=== PATIENT | male | born 1960 | race Two or more races ===

== ENCOUNTER 2024-06-28 11:41 | Inpatient (IN) | payer OTHER, MEDICAID ==
[~2024-06-28] VITALS: Ht 193 cm; Wt 116.4 kg
--- NOTE | 2024-06-28 11:54 | ED.PDOC ---
History of present illness HPI Comments 63Y M with PMHx DM presents to ED for chief complaint high blood sugar x1week with dry mouth, vision changes, and n/v/d. Pt denies chest pain and SOB. Pt states he was prescribed Levemir but his insurance did not approve it. Pt states he has not taken his meds for a few days. No other symptoms reported. Time Seen by MD: 11:45 History of present illness: Nurses Notes, Medications, Allergies Allergies: Coded Allergies: Vancomycin (Verified Allergy, Unknown, 06/28/24) Information Source: Patient Mode of Arrival: Ambulatory Timing: Weeks Duration: Since onset [place]: Other History of: Diabetes, Insulin use Modifying factors: Nothing Associated signs and symptoms: Nausea, Vomiting, Blurred Vision Past Medical History PAST MEDICAL HISTORY: DM Surgical History: Denies all surgeries Family History Family History: Unknown Social History Smoker: Non-Smoker Alcohol: Denies ETOH Use Drugs: Denies Drug Use Lives In: Home Constitutional: denies: chills, diaphoresis, fatigue, fever, malaise, sweats, weakness, others EENTM: reports: blurred vision, others (vision changes, dry mouth); denies: double vision, ear bleeding, ear discharge, ear drainage, ear pain, ear ringing, eye pain, eye redness, hearing loss, mouth pain, mouth swelling, nasal discharge, nose bleeding, nose congestion, nose pain, photophobia, tearing, throat pain, throat swelling, voice changes Respiratory: denies: cough, hemoptysis, orthopnea, SOB at rest, shortness of breath, SOB with excertion, stridor, wheezing, others Cardiovascular: denies: chest pain, dizzy spells, diaphoresis, Dyspnea on exertion, edema, irregular heart beat, left arm pain, lightheadedness, palpitations, PND, syncope, others Gastrointestinal: reports: diarrhea, nausea, vomiting; denies: abdomen distended, abdominal pain, blood streaked bowels, constipated, dysphagia, difficulty swallowing, hematemesis, melena, poor appetite, poor fluid intake, rectal bleeding, rectal pain, others Genitourinary: denies: burning, dysuria, flank pain, frequency, hematuria, incontinence, penile discharge, penile sore, pain, testicle pain, testicle swelling, urgency, others Neurological: denies: dizziness, fainting, headache, left sided numbness, left sided weakness, numbness, paresthesia, pre-existing deficit, right sided numbness, right sided weakness, seizure, speech problems, tingling, tremors, weakness, others Musculoskeletal: denies: back pain, gout, joint pain, joint swelling, muscle pain, muscle stiffness, neck pain, others Integumetry: denies: bruises, change in color, change in hair/nails, dryness, laceration, lesions, lumps, rash, wounds, others Allergic/Immunocompromised: denies: Difficulty Healing, Frequent Infections, Hives, Itching, others Hematologic/Lymphatic: denies: anemia, blood clots, easy bleeding, easy bruising, swollen glands, others Endocrine: denies: excessive hunger, excessive sweating, excessive thirst, excessive urination, flushing, intolerance to cold, intolerance to heat, unexplained weight gain, unexplained weight loss, others Psychiatric: denies: anxiety, bipolar disorder, depression, hopeless, panic disorder, schizophrenia, sleepless, suicidal, others All Other Systems: Reviewed and Negative Physical Exam General Appearance: No Apparent Distress, Normal HEENT: Other (dry mucous membranes) Neck: Full Range of Motion, Non-Tender, Normal, Normal Inspection Respiratory: Chest Non-Tender, Lungs Clear, No Accessory Muscle Use, No Respiratory Distress, Normal Breath Sounds Cardiovascular: No Edema, No JVD, No Murmur, No Gallop, Normal Peripheral Pulses, Regular Rate/Rhythm Breast Exam: Deferred Gastrointestinal: No Organomegaly, Non Tender, No Pulsatile Mass, Normal Bowel Sounds, Soft Genitalia: Deferred Pelvic: Deferred Rectal: Deferred Extremities: No calf tenderness, Normal capillary refill, Normal inspection, Normal range of motion, Non-tender, No pedal edema Musculoskeletal : Apperance: Normal Neurologic: Alert, consumer safety officer II-XII nml as Tested, No Motor Deficits, Normal Affect, Normal Mood, No Sensory Deficits Cerebellar Function: NOT DONE Reflexes: NOT DONE Skin: Dry, Normal Color, Warm Lymphatic: No Adenopathy Was a procedure done? Was a procedure done?: No Differential Diagnosis (DM) Differential Diagnosis: Dehydration, Hyperglycemia, UTI X-Ray, Labs, Meds, VS Vital Signs Date Time Temp Pulse Resp B/P (MAP) Pulse Ox O2 Delivery O2 Flow Rate FiO2 06/28/24 12:36 98.1 100 20 167/96 (119) 95 98.1 06/28/24 12:36 100 20 95 Room Air* 0 21 06/28/24 12:05 98.4 94 18 164/80 (108) 97 Lab Test 06/28/24 12:34 06/28/24 12:01 06/28/24 11:51 Range/Units Urine Color Yellow Yellow Urine Clarity Clear Clear Urine pH 6.0 5.0-9.0 Urine Specific [place] 1.027 1.001-1.035 Urine Protein Trace H Negative Urine Ketones Trace Negative Urine Blood Negative Negative /uL Urine Nitrite Negative Negative Urine Bilirubin Negative Negative Urine Urobilinogen 3 H Negative mg/dL Urine Leukocyte Esterase Negative Negative /uL Urine RBC 1 0 - 3 /hpf Urine Microscopic WBC < 1 0-3 /HPF Urine Squamous Epithelial Cells Few <5 /hpf Urine Bacteria None seen None Seen /hpf Urine Mucus Few None Seen Urine Glucose 4+ H Normal mg/dL White Blood Count 7.7 4.4-10.8 10^3/uL Red Blood Count 3.97 L 4.5-5.90 10^6/uL Hemoglobin 12.4 L 13.5-17.5 g/dL Hematocrit 37.1 L 41.0-53.0 % Mean Corpuscular Volume 93.3 80.0-100.0 fL Mean Corpuscular Hemoglobin 31.2 28.0-32.0 pg Mean Corpuscular Hemoglobin Concent 33.5 32.0-36.0 g/dL Red Cell Distribution Width 15.2 H 11.8-14.3 % Platelet Count 341 140-450 10^3/uL Mean Platelet Volume 8.9 6.9-10.8 fL Neutrophils (%) (Auto) 66.0 37.0-80.0 % Lymphocytes (%) (Auto) 25.3 10.0-50.0 % Monocytes (%) (Auto) 5.1 0.0-12.0 % Eosinophils (%) (Auto) 1.7 0.0-7.0 % Basophils (%) (Auto) 1.9 0.0-2.0 % Neutrophils # (Auto) 5.1 1.6-8.6 10 ^3/uL Lymphocytes # (Auto) 1.9 0.4-5.4 10 ^3/uL Monocytes # (Auto) 0.4 0-1.3 10 ^3/uL Eosinophils # (Auto) 0.1 0-0.8 10 ^3/uL Basophils # (Auto) 0.1 0-0.2 10 ^3/uL Nucleated Red Blood Cells 0.1 % Sodium Level 141 136-145 mmol/L Potassium Level 4.1 3.5-5.1 mmol/L Chloride Level 109 H 98-107 mmol/L Carbon Dioxide Level 23 20-31 mmol/L Anion Gap 9 5-15 Blood Urea Nitrogen 15 9-23 mg/dL Creatinine 1.04 0.700-1.30 mg/dL Glomerular Filtration Rate Calc 81 >90 mL/min BUN/Creatinine Ratio 14.4 10.0-20.0 Serum Glucose 191 H 74-106 mg/dL Calcium Level 9.0 8.7-10.4 mg/dL Troponin I High Sensitivity 6 </=54 ng/L POC Glucose 190 H 70-106 mg/dl [place] [id number] DIAGNOSTIC IMAGING Diagnostic Imaging Report : [id number] Signed PATIENT: CARLOS A CHARLTON ACCT: [id number] UNIT: [id number] : 1960 LOC: ER ROOM / BED: / AGE / SEX: 63 / M ADM STATUS: REG ER SERVICE 1150 ORDERING PHYSICIAN: MERCEDES FISHER MD PROCEDURE(s): CXRP - CHEST PORTABLE REASON: weakness ORDER NUMBER(s): [id number], ACCESSION NUMBER(s): [id number] EXAM: XY CHEST PORTABLE HISTORY: weakness COMPARISON: None TECHNIQUE: Portable AP view of the chest was performed. FINDINGS: No pneumothorax, consolidative infiltrates, or pulmonary edema. There is [id number] central peribronchial thickening. The heart is not enlarged. There is thoracic spondylosis and mild dextroscoliosis. 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 IMPRESSION: Reactive airways disease. The lungs are otherwise clear. ATED BY: MALINI SHEEHAN MD DICTATED DATE/TIME: 06/28/24 1204 SIGNED BY: MALINI SHEEHAN MD SIGNED DATE/TIME: 06/28/24 1204 CC: Time of 1ST Reevaluation: 12:15 Reevaluation 1ST: Unchanged Patient Education/Counseling: Diagnosis, Treatment Family Education/Counseling: No Family Present Departure 1 Departure Time of Disposition: 13:52 (Patient with uncontrolled diabetes and near- syncope. We will admit patient for further workup and expert consultation) Impression: Primary Impression: Uncontrolled diabetes mellitus Qualified Codes: E11.65 - Type 2 diabetes mellitus with hyperglycemia Additional Impression: Near syncope Disposition: ADMITTED INPATIENT Admit to: Med Surg Condition: Serious Critical Care Note Critical Care Time?: No Stability Stability form required: No Heart Score Heart Score: Heart Score Response (Comments) Value History N/A 0 EKG N/A 0 Age N/A 0 Risk Factors N/A 0 Troponin N/A 0 Total 0 I personally scribed for MERCEDES FISHER MD ([facility] on 06/28/24 at 11:53. Electronically submitted by Sloane King ([employer]). I personally scribed for MERCEDES FISHER MD ([email or web address]) on 06/28/24 at 12:14. Electronically submitted by Sloane King ([employer]). MERCEDES FISHER MD Jun 28, 2024 11:53
--- NOTE | 2024-06-28 12:06 | DVH ---
EXAM: XY CHEST PORTABLE HISTORY: weakness COMPARISON: None TECHNIQUE: Portable AP view of the chest was performed. FINDINGS: No pneumothorax, consolidative infiltrates, or pulmonary edema. There is [id number] central per ibronchial thickening. The heart is not enlarged. There is thoracic spondylosis and mild dextroscolio sis. There is left glenohumeral osteoarthritis, not fully imaged here. IMPRESSION: Reactive airways disease. The lungs are otherwise clear.
[2024-06-28 12:36] VITALS: PULSE 100; RESP 20; O2SAT 95
[2024-06-28 12:40] LABS: Basophils # (auto) 0.1 10 ^3/uL (0-0.2); Basophils % (auto) 1.9 % (0.0-2.0); Eosinophils # (auto) 0.1 10 ^3/uL (0-0.8); Eosinophils % (auto) 1.7 % (0.0-7.0); Hematocrit 37.1 % (41.0-53.0); Hemoglobin 12.4 g/dL (13.5-17.5); Lymphocytes # (auto) 1.9 10 ^3/uL (0.4-5.4); Lymphocytes % (auto) 25.3 % (10.0-50.0); Mean Corpuscular Hemoglobin 31.2 pg (28.0-32.0); Mean Corpuscular Hgb Conc. 33.5 g/dL (32.0-36.0); Mean Corpuscular Volume 93.3 fL (80.0-100.0); Monocytes # (auto) 0.4 10 ^3/uL (0-1.3); Monocytes % (auto) 5.1 % (0.0-12.0); Neutrophils # (auto) 5.1 10 ^3/uL (1.6-8.6); Nucleated Red Blood Cells % 0.1 %; Platelet Count (auto) 341 10^3/uL (140-450); Red Blood Cells 3.97 10^6/uL (4.5-5.90); Red Cell Distribution Width 15.2 % (11.8-14.3); White Blood Cell 7.7 10^3/uL (4.4-10.8)
[2024-06-28 12:58] LABS: Urine Bacteria None Seen /hpf (None Seen)
[2024-06-28 13:05] LABS: Potassium 4.1 mmol/L (3.5-5.1); Sodium 141 mmol/L (136-145)
[2024-06-28 13:06] LABS: Anion Gap 9 (5-15); Carbon Dioxide 23 mmol/L (20-31)
[2024-06-28 13:11] LABS: BUN/Creatinine Ratio 14.4 (10.0-20.0); Blood Urea Nitrogen 15 mg/dL (9-23)
[2024-06-28 13:16] LABS: Chloride 109 mmol/L (98-107); Glucose 191 mg/dL (74-106)
[2024-06-28 13:23] LABS: Urine Blood Negative /uL (Negative); Urine Clarity Clear (Clear); Urine Color Yellow (Yellow); Urine Mucus FEW (None Seen); Urine Protein, UAD TRACE (Negative); Urine Specific Gravity 1.027 (1.001-1.035); Urine Squamous Epithelial Cell FEW /hpf (<5); Urine Urobilinogen 3 mg/dL (Negative); Urine WBC < 1 /HPF (0-3)
[2024-06-28] MEDS ORDERED: DOCUSATE SOD 100 MG CAP PO PRN (15:45)
[2024-06-28] MEDS ORDERED: NITROGLYCERIN 0.4 MG SL TAB SL PRN (15:45)
[2024-06-28] MEDS ORDERED: MORPHINE SULFATE INJ 2 MG/ml SYRG IV PRN (15:45)
[2024-06-28] MEDS ORDERED: ONDANSETRON HCL 4 MG/2 ML VIAL IV PRN (15:45)
[2024-06-28] MEDS ORDERED: DEXTROSE (50%) 50ML SYRG IV PRN (15:45)
--- NOTE | 2024-06-28 15:54 | DVHHP2 ---
History of Present Illness Reason for Visit: Uncontrolled diabetes History of Present Illness Chetan Salmon is a 63-year-old male with past medical history diabetes, hypertension, and hyperlipidemia, who came in for elevated blood sugar. Patient states he has not been to see a doctor in a long time and has not been taking a ny of his medications. He states his blood sugars have been elevated, he has been nauseated, vomiting, and having blurry vision for 2 weeks. Cardiovascular: HTN, hyperipidemia Endocrine: Diabetes Past Surgical History: Other (left leg, right ankle) Smoke: No Drugs: Heroin (quite 3 months ago) Lives: with Family Domestic Violence: Neg Review of Systems Constitutional: No: Fever, Chills, Sweats, Weakness, Malaise, Other Eyes: No: Pain, Vision change, Conjunctivae inflammation, Eyelid inflammation, Other, Redness ENT: No: Ear pain, Ear discharge, Nose pain, Nose discharge, Nose congestion, Mouth pain, Mouth swelling, Throat pain, Throat swelling, Other Respiratory: No: Cough, Dry, Shortness of breath, SOB with excertion, Wheezing, Hemoptysis, Pleuritic Pain, Sputum, Wheezing, Other Cardiovascular: No: Chest Pain, Palpitations, Orthopnea, Paroxysmal Noc. Dyspnea, Edema, Lt Headedness, Other Gastrointestinal: Nausea, Vomiting, Abdominal Pain; No: Diarrhea, Constipation, Melena, Hematochezia, Other Genitourinary: No Dysuria, No Frequency, No Incontinence, No Hematuria, No Retention, No Other Musculoskeletal: No: other, neck pain, shoulder pain, arm pain, back pain, hand pain, leg pain, foot pain Skin: No: Rash, Lesions, Jaundice, Bruising, Other Neurological: No: Weakness, Numbness, Incoordination, Change in speech, Confusion, Seizures, Other Allergies: Coded Allergies: Vancomycin (Verified Allergy, Unknown, 06/28/24) Medications Current Medications Medications Dose Ordered Sig/Stacey Route Start Time Stop Time Status Last Admin Dose Admin Acetaminophen/ Hydrocodone Bitart 1 tab Q4HP PRN PO 06/28/24 15:45 UNV Ondansetron HCl 4 mg Q4HP PRN IV 06/28/24 15:45 UNV Docusate Sodium 100 mg BIDPRN PRN PO 06/28/24 15:45 UNV Acetaminophen 650 mg Q6HP PRN PO 06/28/24 15:45 UNV Nitroglycerin 0.4 mg Q5MINP PRN SL 06/28/24 15:45 UNV Morphine Sulfate 2 mg Q30M PRN IV 06/28/24 15:45 UNV Diagnostic Test (Pha) 1 strip ACHS 06/28/24 17:00 UNV Insulin Human Regular HS SC 06/28/24 22:00 UNV Insulin Human Regular AC SC 06/28/24 17:00 UNV Dextrose 50 ml UD PRN IV 06/28/24 15:45 UNV Lisinopril 10 mg DAILY PO 06/29/24 10:00 UNV Metoprolol Tartrate 25 mg BID PO 06/28/24 22:00 UNV Exam Vital Signs Vital Signs Date Time Temp Pulse Resp B/P (MAP) Pulse Ox O2 Delivery O2 Flow Rate FiO2 06/28/24 12:36 98.1 100 20 167/96 (119) 95 98.1 06/28/24 12:36 Room Air* 0 21 General Appearance: Alert, Oriented X3, Cooperative, mild distress HEENT: Atraumatic, PERRLA, Mucous membr. moist/pink Respiratory: Clear to auscultation, Normal air movement Cardiovascular: Regular rate, Normal S1, Normal S2 Abdominal: Normal bowel sounds, Soft, No tenderness Extremities: No clubbing, No cyanosis, No edema Skin: No rashes, No breakdown, No significant lesion Neuro: Normal gait, Normal speech, Strength at 5/5 X4 ext Psych/Mental Status: Mental status NL, Mood NL Labs/Xrays Labs Test 06/28/24 12:34 06/28/24 12:01 06/28/24 11:51 Range/Units Urine Color Yellow Yellow Urine Clarity Clear Clear Urine pH 6.0 5.0-9.0 Urine Specific [place] 1.027 1.001-1.035 Urine Protein Trace H Negative Urine Ketones Trace Negative Urine Blood Negative Negative /uL Urine Nitrite Negative Negative Urine Bilirubin Negative Negative Urine Urobilinogen 3 H Negative mg/dL Urine Leukocyte Esterase Negative Negative /uL Urine RBC 1 0 - 3 /hpf Urine Microscopic WBC < 1 0-3 /HPF Urine Squamous Epithelial Cells Few <5 /hpf Urine Bacteria None seen None Seen /hpf Urine Mucus Few None Seen Urine Glucose 4+ H Normal mg/dL White Blood Count 7.7 4.4-10.8 10^3/uL Red Blood Count 3.97 L 4.5-5.90 10^6/uL Hemoglobin 12.4 L 13.5-17.5 g/dL Hematocrit 37.1 L 41.0-53.0 % Mean Corpuscular Volume 93.3 80.0-100.0 fL Mean Corpuscular Hemoglobin 31.2 28.0-32.0 pg Mean Corpuscular Hemoglobin Concent 33.5 32.0-36.0 g/dL Red Cell Distribution Width 15.2 H 11.8-14.3 % Platelet Count 341 140-450 10^3/uL Mean Platelet Volume 8.9 6.9-10.8 fL Neutrophils (%) (Auto) 66.0 37.0-80.0 % Lymphocytes (%) (Auto) 25.3 10.0-50.0 % Monocytes (%) (Auto) 5.1 0.0-12.0 % Eosinophils (%) (Auto) 1.7 0.0-7.0 % Basophils (%) (Auto) 1.9 0.0-2.0 % Neutrophils # (Auto) 5.1 1.6-8.6 10 ^3/uL Lymphocytes # (Auto) 1.9 0.4-5.4 10 ^3/uL Monocytes # (Auto) 0.4 0-1.3 10 ^3/uL Eosinophils # (Auto) 0.1 0-0.8 10 ^3/uL Basophils # (Auto) 0.1 0-0.2 10 ^3/uL Nucleated Red Blood Cells 0.1 % Sodium Level 141 136-145 mmol/L Potassium Level 4.1 3.5-5.1 mmol/L Chloride Level 109 H 98-107 mmol/L Carbon Dioxide Level 23 20-31 mmol/L Anion Gap 9 5-15 Blood Urea Nitrogen 15 9-23 mg/dL Creatinine 1.04 0.700-1.30 mg/dL Glomerular Filtration Rate Calc 81 >90 mL/min BUN/Creatinine Ratio 14.4 10.0-20.0 Serum Glucose 191 H 74-106 mg/dL Calcium Level 9.0 8.7-10.4 mg/dL Troponin I High Sensitivity 6 </=54 ng/L POC Glucose 190 H 70-106 mg/dl EXAM: XY CHEST PORTABLE FINDINGS: No pneumothorax, consolidative infiltrates, or pulmonary edema. There is [id number] central peribronchial thickening. The heart is not enlarged. There is thoracic spondylosis and mild dextroscoliosis. There is left glenohumer al osteoarthritis, not fully imaged here. IMPRESSION: Reactive airways disease. The lungs are otherwise clear. Assessment/Plan Assessment/Plan Assessment: Uncontrolled diabetes mellitus, Uncontrolled hypertension, Hyperlipidemia, Plan: Admit to Tele, Cardiology consult, ECHO, Accu checks Q AC&HS with sliding scale, Antihypertensives, A1c, Plan discussed with: Patient My Orders Orders - SHAHBAZ DAVIS BREAKFAST MANAGER Procedure Category Date Status Time Admit ADMIT 06/28/24 Transmitted 15:41 Code Status CODE 06/28/24 Transmitted 15:41 Hydrocodone-Acet PHA 06/28/24 Logged 5/325mg Tab (Ulmer 15:45 Ondansetron Hcl PHA 06/28/24 Logged (Zofran) 15:45 Docusate Sodium PHA 06/28/24 Logged Capsule (Colace 15:45 Complete Blood Count LAB 06/29/24 Verified 04:00 Comprehensive LAB 06/29/24 Verified Metabolic Panel 04:00 Cardiac DIET 06/28/24 Transmitted Diet-2gna,Lofat,Lochol Dinner Condition: Serious BRYAN 06/28/24 In Process 15:41 Acetaminophen Tablet PHA 06/28/24 Logged (Tylenol Tablet) 15:45 Nitroglycerin PHA 06/28/24 Logged Sublingual (Ntrostat 15:45 Morphine Sulfate PHA 06/28/24 Logged Injection 15:45 Stat Ekg For Chest BRYAN 06/28/24 In Process Pain 15:41 Notify Of Changes BRYAN 06/28/24 In Process From Base 15:41 Road Consultant For BRYAN 06/28/24 In Process 24 Hours 15:41 Emergency Dysrhythmia BRYAN 06/28/24 In Process Protocol 15:41 Rhythm Strips Once BRYAN 06/28/24 In Process Every Shift 15:41 Oxygen By Nasal RT 06/28/24 Transmitted Cannula 15:41 Glucose Blood PHA 06/28/24 Logged (Accu-Chek Comfort 17:00 Insulin R (Human) PHA 06/28/24 Logged (Insulin R) 22:00 Insulin R (Human) PHA 06/28/24 Logged (Insulin R) 17:00 Dextrose 50% Syringe PHA 06/28/24 Logged 15:45 Lisinopril Tablet PHA 06/29/24 Logged (Zestril Tablet) 10:00 Lisinopril Tablet PHA 06/28/24 Logged (Zestril Tablet) 15:45 Metoprolol Tartrate PHA 06/28/24 Logged Tablet (Lopressor Ta 22:00 Sodium Chloride 0.9% PHA 06/28/24 Logged 16:00 * Cardiology Consult CONS 06/28/24 Transmitted 15:46 Echo 2d Mode Cardiac US 06/28/24 Logged DOP 15:46 Date of Service: Jun 28, 2024 Billing Provider: SHAHBAZ DAVIS Common Visit Codes: [id number] INP/OBS CARE (MOD) SHAHBAZ DAVIS Jun 28, 2024 15:54
[2024-06-28] MEDS: SODIUM CHLORIDE 0.9% 1,000 ML IV ONE (16:00)
--- NOTE | 2024-06-28 16:30 | DVHSR ---
APPROVED REPORT EXAM: Two-dimensional and M-mode echocardiogram with Doppler and color Doppler. Blood Pressure: 162/92 mmHg INDICATION uncontrolled hypertension RISK FACTORS Height: 6'4, Weight: 200 DIMENSIONS LVDd5.8 (3.8-5.7cm)LA (2D)4.5 (1.9-4.0cm)Aortic Root3.4 (2.0-3.7cm) LVDs4.1 (2.5-4.0cm)LA (MM) (1.9-4.0cm)Aortic Cusp Exc1.5 (1.5-2.0cm) EF (%) 55.0 (55-70%)Rt. Atrium3.1 (1.9-4.0cm)Asc. Aorta cm IVSd1.0 (0.7-1.1cm)RV (D) (1.8-2.4cm) PWd0.9 (0.7-1.1cm) Mitral Valve MitralMitral Stenosis E wave0.77m/sMV Mean GR.mmHg A wave0.92m/sMV Peak GR.142mmHg E/A ratio0.82D MVAcm2 DECEL [id number] 1/2 Timems Aortic Valve Aortic ValveAortic Stenosis V10.92m/Carla Mean GR.3mmHg V21.17m/Carla Peak GR.6mmHg LVOT Diameter2.2 (1.8-2.4cm)Doppler AVA2.99cm2 Pulmonic Valve V20.85m/s Other Information Quality : Technically LimitedRhythm : Technically limited study due to patient position. Conclusion lvef 60% by visual estimate mild lvh normal rv function moderate left atrium enlarged mild to moderate mitral regurg
[2024-06-28] MEDS: LISINOPRIL 5 MG TAB PO ONE (16:57)
[2024-06-28] MEDS: InsuLIN REG 1unit/0.01ml Soln (100units/ml) SC SCH ×2 (17:00→23:34)
[2024-06-28] MEDS: ACCU-CHEK COMFORT CURVE STRIP VI SCH (17:00)
--- NOTE | 2024-06-28 17:02 | DVHINCON2 ---
Date Seen: Jun 28, 2024 Referring Physician RICH Bonilla Reason for Consultation Uncontrolled hypertension History of Present Illness This is a 63-year-old male patient who presents to the emergency room with multiple chief complaints. The patient reports he has been experiencing blurry vision, diarrhea, and polyuria for approximately two weeks. He comes to the emergency room for further evaluation. The patient admits he has not been taking his medications since April because he moved here from [place] and has not established care. Cardiology has been consulted at this time for uncontrolled hypertension. Upon emergency room arrival, the patient's blood pressure was noted to be 164/80. Initial twelve lead electrocardiogram reveals normal sinus rhythm without any significant ST segment changes. Initial troponin level was negative. The patient denies any chest pain at time of assessment. Significant past medical history includes hypertension, dyslipidemia, type 2 diabetes mellitus, CVA in 2010 without residual deficit, hepatitis-B, previous heroin abuse, and tobacco use. Past Medical History Past medical history reviewed. No other significant than mentioned above. Past Surgical History Carpal tunnel repair Right ankle fracture repair Family History Family history reviewed. Social History Patient has a 40 pack year history, smokes approximately one pack per day Patient reports previous heroin use, states last time was in March 2024 Patient denies alcohol use Allergies: Coded Allergies: Vancomycin (Verified Allergy, Unknown, 06/28/24) Home Meds Patient denies taking any prescribed medications at this time Current Medications Current Medications Medications (Trade) Dose Ordered Sig/Stacey Route PRN Reason Start Time Stop Time Status Last Admin Acetaminophen/ Hydrocodone Bitart ([place] 5/325MG Tab) 1 tab Q4HP PRN PO MODERATE PAIN (4-6 PAIN SCALE) 06/28/24 15:45 Ondansetron HCl (Zofran) 4 mg Q4HP PRN IV NAUSEA / VOMITING 06/28/24 15:45 Docusate Sodium (Colace Capsule) 100 mg BIDPRN PRN PO FOR CONSTIPATION 06/28/24 15:45 Acetaminophen (Tylenol Tablet) 650 mg Q6HP PRN PO PAIN SCALE 1-3 OR TEMP>100.4 06/28/24 15:45 Nitroglycerin (Ntrostat Sublingual) 0.4 mg Q5MINP PRN SL FOR CHEST PAIN 06/28/24 15:45 Morphine Sulfate 2 mg Q30M PRN IV FOR CHEST PAIN 06/28/24 15:45 Diagnostic Test (Pha) (Accu-Chek Comfort Curve T) 1 strip ACHS 06/28/24 17:00 Insulin Human Regular (InsuLIN R) HS SC 06/28/24 22:00 Insulin Human Regular (InsuLIN R) AC SC 06/28/24 17:00 Dextrose 50 ml UD PRN IV Blood Sugar LESS THAN 60 06/28/24 15:45 Lisinopril (Zestril Tablet) 10 mg DAILY PO 06/29/24 10:00 Metoprolol Tartrate (Lopressor Tablet) 25 mg BID PO 06/28/24 22:00 Review of Systems Constitutional: No symptom reported Ears, Nose, & Throat: No symptom reported Eyes: Blurry vision Neurological: No symptoms reported Pulmonary/Respiratory: No symptoms reported Cardiovascular: No symptom reported Gastrointestinal: No symptom reported Genitourinary: Polyuria Musculoskeletal: No symptom reported Skin: No symptom reported Psychiatric: No symptom reported Endocrine: No symptom reported Hematologic/Lymphatic: No symptom reported Vital Signs Vital Signs Date Time Temp Pulse Resp B/P (MAP) Pulse Ox O2 Delivery O2 Flow Rate FiO2 06/28/24 16:57 151/73 06/28/24 12:36 98.1 100 20 95 98.1 06/28/24 12:36 Room Air* 0 21 Physical Exam General Appearance: Cooperative. Well-developed. Well-nourished. No acute distress. Pulmonary/Respiratory: Clear, bilateral breaths sounds. Cardiovascular/Chest: Regular rate and rhythm. Peripheral Pulses: 2+ Radial (R). 2+ Radial (L). Abdominal Exam: Normal bowel sounds. Soft, non-tender. Ankle Exam: Negative ankle edema Lower extremities: Negative lower extremity edema Neuro/Mental Status: A/OX4, coherent. Thoughts/Psych: Normal thought pattern. Appropriate mood and affect. Good judgment and insight. Appearance: No acute distress. Skin Exam: Normal inspection. Normal color. Warm and dry. Labs/Diagnostic Data Labs Test 06/28/24 12:34 06/28/24 12:01 06/28/24 11:51 Range/Units Urine Color Yellow Yellow Urine Clarity Clear Clear Urine pH 6.0 5.0-9.0 Urine Specific [place] 1.027 1.001-1.035 Urine Protein Trace H Negative Urine Ketones Trace Negative Urine Blood Negative Negative /uL Urine Nitrite Negative Negative Urine Bilirubin Negative Negative Urine Urobilinogen 3 H Negative mg/dL Urine Leukocyte Esterase Negative Negative /uL Urine RBC 1 0 - 3 /hpf Urine Microscopic WBC < 1 0-3 /HPF Urine Squamous Epithelial Cells Few <5 /hpf Urine Bacteria None seen None Seen /hpf Urine Mucus Few None Seen Urine Glucose 4+ H Normal mg/dL White Blood Count 7.7 4.4-10.8 10^3/uL Red Blood Count 3.97 L 4.5-5.90 10^6/uL Hemoglobin 12.4 L 13.5-17.5 g/dL Hematocrit 37.1 L 41.0-53.0 % Mean Corpuscular Volume 93.3 80.0-100.0 fL Mean Corpuscular Hemoglobin 31.2 28.0-32.0 pg Mean Corpuscular Hemoglobin Concent 33.5 32.0-36.0 g/dL Red Cell Distribution Width 15.2 H 11.8-14.3 % Platelet Count 341 140-450 10^3/uL Mean Platelet Volume 8.9 6.9-10.8 fL Neutrophils (%) (Auto) 66.0 37.0-80.0 % Lymphocytes (%) (Auto) 25.3 10.0-50.0 % Monocytes (%) (Auto) 5.1 0.0-12.0 % Eosinophils (%) (Auto) 1.7 0.0-7.0 % Basophils (%) (Auto) 1.9 0.0-2.0 % Neutrophils # (Auto) 5.1 1.6-8.6 10 ^3/uL Lymphocytes # (Auto) 1.9 0.4-5.4 10 ^3/uL Monocytes # (Auto) 0.4 0-1.3 10 ^3/uL Eosinophils # (Auto) 0.1 0-0.8 10 ^3/uL Basophils # (Auto) 0.1 0-0.2 10 ^3/uL Nucleated Red Blood Cells 0.1 % Sodium Level 141 136-145 mmol/L Potassium Level 4.1 3.5-5.1 mmol/L Chloride Level 109 H 98-107 mmol/L Carbon Dioxide Level 23 20-31 mmol/L Anion Gap 9 5-15 Blood Urea Nitrogen 15 9-23 mg/dL Creatinine 1.04 0.700-1.30 mg/dL Glomerular Filtration Rate Calc 81 >90 mL/min BUN/Creatinine Ratio 14.4 10.0-20.0 Serum Glucose 191 H 74-106 mg/dL Calcium Level 9.0 8.7-10.4 mg/dL Troponin I High Sensitivity 6 </=54 ng/L POC Glucose 190 H 70-106 mg/dl Assessment Hypertension Dyslipidemia [id number] mitral valve regurgitation Type 2 diabetes mellitus CVA without residual deficits History of heroin abuse Tobacco use Medical noncompliance Plan/Recommendation We will continue with the following plan/recommendations (Dr. Gomez): Patient seen and examined in the emergency room with . Transthoracic echocardiogram reveals EF 60%. We will recommend to continue with antihypertensive therapy. Patient educated on the importance of establishing care and continuing prescribed medications. There is no further inpatient cardiac workup indicated at this time. Thank you for allowing us to care for this patient. Please call with any questions or concerns. Critical care time spent: 40 minutes This medical document was created using an electronic medical record system with voice recognition software and computerized dictation system. Although this document has been carefully reviewed, there might still be some phonetic and typographical errors. Occasional wrong-word or ``sound-alike substitutions may have occurred due to the inherent limitations of voice recognition software. These areas are purely typographical due to imperfections of the software programs and do not reflect any compromise in the patient's medical care. Please read the chart carefully and recognize, using context, where these substitutions have occurred. Plan discussed with: Patient NYHA Physical activity limitations: NA Date of Service: Jun 28, 2024 Billing Provider: DENIA GARCIA Cardiology Common Codes: [id number] INP/OBS CARE (High) Cardiology Consultation Codes: [id number] CONSULT <45MIN DENIA GARCIA Jun 28, 2024 17:02
[2024-06-28] MEDS: HYDROcodone-ACET 5/325MG TAB PO PRN (17:08)
--- NOTE | 2024-06-28 18:01 | ECG ---
[facility] Test Date: 2024-06-28 Test Time: 16:48:04 Pat Name: CARLOS A CHARLTON Department: er Room: [address] [place] [address] Gender: M [employer] Librarian: elsi : [id number] Requested By: DENIA GARCIA Order Number: [id number] Reading MD: Aron Graham Measurements Intervals [place] Rate: 84 P: 72 [place]: 124 QRS: 72 QRSD: 102 T: 9 QT: 369 QTc: 437 Interpretive Statements Sinus rhythm Abnormal R-wave progression, early transition Minimal ST depression, inferior leads Baseline wander in lead(s) V6 Electronically Signed On 06-29-2024 12:00:54 PST by Aron Graham Please click the below link to view image of tracing.
[2024-06-28] MEDS ORDERED: hydrALAZINE HCL 20 MG/ML VL IV PRN (19:15)
[2024-06-28 19:23] LABS: LDL Cholesterol 70 mg/dL (< 100)
[2024-06-28 19:24] LABS: Cholesterol 123 mg/dL (< 200)
[2024-06-28 19:26] LABS: HDL Cholesterol 40 mg/dL (40-59); Triglycerides 161 mg/dL (< 150)
[2024-06-28 20:45] LABS: Amphetamine Screen, Urine Neg (NEGATIVE); Barbiturate Scree,Urine Neg (NEGATIVE); Benzodiazephine Screen, Urine Neg (NEGATIVE); Cannabinoid Screen, Urine Neg (NEGATIVE); Cocaine Screen, Urine Neg (NEGATIVE); Opiate Scree,Urine Neg (NEGATIVE); Phencyclidine Screen, Urine Neg (NEGATIVE)
[2024-06-28] MEDS: METOPROLOL TARTRATE 25 MG TAB PO SCH (23:31)
[2024-06-29 05:15] LABS: Basophils # (auto) 0.1 10 ^3/uL (0-0.2); Basophils % (auto) 1.2 % (0.0-2.0); Eosinophils # (auto) 0.1 10 ^3/uL (0-0.8); Eosinophils % (auto) 1.5 % (0.0-7.0); Hematocrit 33.5 % (41.0-53.0); Hemoglobin 11.4 g/dL (13.5-17.5); Lymphocytes # (auto) 1.7 10 ^3/uL (0.4-5.4); Lymphocytes % (auto) 22.2 % (10.0-50.0); Mean Corpuscular Hemoglobin 31.7 pg (28.0-32.0); Mean Corpuscular Hgb Conc. 34.1 g/dL (32.0-36.0); Monocytes # (auto) 0.4 10 ^3/uL (0-1.3); Monocytes % (auto) 5.2 % (0.0-12.0); Neutrophils # (auto) 5.4 10 ^3/uL (1.6-8.6); Neutrophils % (auto) 69.9 % (37.0-80.0); Platelet Count (auto) 299 10^3/uL (140-450); Red Cell Distribution Width 15.2 % (11.8-14.3); White Blood Cell 7.8 10^3/uL (4.4-10.8)
[2024-06-29 05:32] LABS: Alanine Aminotransferase 11 U/L (7-40); Albumin 4.1 g/dL (3.2-4.8); Alkaline Phosphatase 81 U/L (46-116); Anion Gap 7 (5-15); BUN/Creatinine Ratio 15.3 (10.0-20.0); Blood Urea Nitrogen 18 mg/dL (9-23); Calcium 8.9 mg/dL (8.7-10.4); Carbon Dioxide 25 mmol/L (20-31); Potassium 4.1 mmol/L (3.5-5.1); Sodium 140 mmol/L (136-145)
[2024-06-29 05:33] LABS: Total Protein 7.1 g/dL (5.7-8.2)
[2024-06-29 05:35] VITALS: PULSE 77; RESP 20; O2SAT 98
[2024-06-29 05:36] LABS: Aspartate Aminotransferase 8 U/L (13-40); Bilirubin, Total 1.5 mg/dL (0.2-1.0); Chloride 108 mmol/L (98-107); Glucose 226 mg/dL (74-106)
[2024-06-29] MEDS: LISINOPRIL 5 MG TAB PO SCH (09:21)
[2024-06-29 09:23] VITALS: BP 143/68; PULSE 78; RESP 18; TEMP 98.4; O2SAT 95
[2024-06-29 13:00] VITALS: BP 149/62; PULSE 91; TEMP 98.4; O2SAT 97
--- NOTE | 2024-06-29 14:27 | DVHPN2 ---
Reviewed: Care Plan, H&P, Labs, Medications, Previous Orders, Radiology Changes from previous H/P or p: No Changes General: Per HPI Eyes: No Pain, No Vision change, No Conjunctivae inflammation, No Eyelid inflammation, No Other, No Redness ENT: No Ear pain, No Ear discharge, No Nose pain, No Nose discharge, No Nose congestion, No Mouth pain, No Mouth swelling, No Throat pain, No Throat swelling, No Other Cardiovascular: No Chest Pain, No Palpitations, No Orthopnea, No Paroxysmal Noc. Dyspnea, No Edema, No Lt Headedness, No Other Respiratory: No Cough, No Dry, No Shortness of breath, No SOB with excertion, No Wheezing, No Hemoptysis, No Pleuritic Pain, No Sputum, No Other Gastrointestinal: Nausea, Vomiting, Abdominal Pain; No Diarrhea, No Constipation, No Melena, No Hematochezia, No Other Genitourinary: No Dysuria, No Frequency, No Incontinence, No Hematuria, No Retention, No Other Musculoskeletal: No other, No neck pain, No shoulder pain, No arm pain, No back pain, No hand pain, No leg pain, No foot pain Skin: No Rash, No Lesions, No Jaundice, No Bruising, No Other Objective Vitals Vital Signs Date Time Temp Pulse Resp B/P (MAP) Pulse Ox O2 Delivery O2 Flow Rate FiO2 06/29/24 13:00 98.4 91 149/62 (91) 97 98.4 06/29/24 09:23 18 06/29/24 05:35 Room Air* 0 21 Medications Current Medications Medications Dose Ordered Sig/Stacey Route Start Time Stop Time Status Last Admin Dose Admin Acetaminophen/ Hydrocodone Bitart 1 tab Q4HP PRN PO 06/28/24 15:45 06/29/24 10:58 1 TAB Ondansetron HCl 4 mg Q4HP PRN IV 06/28/24 15:45 Docusate Sodium 100 mg BIDPRN PRN PO 06/28/24 15:45 Acetaminophen 650 mg Q6HP PRN PO 06/28/24 15:45 Nitroglycerin 0.4 mg Q5MINP PRN SL 06/28/24 15:45 Morphine Sulfate 2 mg Q30M PRN IV 06/28/24 15:45 Diagnostic Test (Pha) 1 strip ACHS 06/28/24 17:00 06/29/24 11:49 1 STRIP Insulin Human Regular HS SC 06/28/24 22:00 06/28/24 23:34 8 UNITS Insulin Human Regular AC SC 06/28/24 17:00 06/29/24 11:50 3 UNITS Dextrose 50 ml UD PRN IV 06/28/24 15:45 Lisinopril 10 mg DAILY PO 06/29/24 10:00 06/29/24 09:21 10 MG Metoprolol Tartrate 25 mg BID PO 06/28/24 22:00 06/29/24 00:25 25 MG Hydralazine HCl 10 mg Q6HP PRN IV 06/28/24 19:15 Laboratory Results Laboratory Tests 06/29/24 04:33 Chemistry Test 06/29/24 04:33 Albumin 4.1 g/dL (3.2-4.8) Calcium Level 8.9 mg/dL (8.7-10.4) Total Protein 7.1 g/dL (5.7-8.2) LFT Test 06/29/24 04:33 Alanine Aminotransferase (ALT) 11 U/L (7-40) Alkaline Phosphatase 81 U/L (46-116) Aspartate Amino Transferase (AST) 8 U/L (13-40) L Total Bilirubin 1.5 mg/dL (0.2-1.0) H Urinalysis Test 06/28/24 12:34 Urine Color Yellow (Yellow) Urine Clarity Clear (Clear) Urine pH 6.0 (5.0-9.0) Urine Specific [place] 1.027 (1.001-1.035) Urine Protein Trace (Negative) H Urine Ketones Trace (Negative) Urine Blood Negative /uL (Negative) Urine Nitrite Negative (Negative) Urine Bilirubin Negative (Negative) Urine Urobilinogen 3 mg/dL (Negative) H Urine Leukocyte Esterase Negative /uL (Negative) Urine RBC 1 /hpf (0 - 3) Urine Microscopic WBC < 1 /HPF (0-3) Urine Squamous Epithelial Cells Few /hpf (<5) Urine Bacteria None seen /hpf (None Seen) Urine Mucus Few (None Seen) Urine Glucose 4+ mg/dL (Normal) H Assessment/Plan Assessment/Plan Chetan Salmon is a 63-year-old male with past medical history diabetes, hypertension, and hyperlipidemia, who came in for elevated blood sugar. Patient states he has not been to see a doctor in a long time and has not been taking any of his medications. He states his blood sugars have been elevated, he has been nauseated, vomiting, and having blurry vision for 2 weeks. Uncontrolled diabetes mellitus, Uncontrolled hypertension, Hyperlipidemia, obesity chest pain intractable back pain 07/09/2024: pending evaluation by cardio for chest pain Plan discussed with: Patient Date of Service: Jun 29, 2024 Billing Provider: MARY HA DO Common Visit Codes: [id number] INP/OBS CARE(HIGH) MARY HA DO Jun 29, 2024 14:27
[2024-06-29] MEDS: ACETAMINOPHEN 325 MG TAB PO PRN (16:16)
[2024-06-29 17:03] VITALS: BP 136/70; PULSE 81; RESP 20; TEMP 98.4; O2SAT 95
[2024-06-29 20:00] VITALS: PULSE 116
[2024-06-29 21:00] VITALS: BP 144/68; PULSE 97; RESP 18; TEMP 97.6; O2SAT 95
[2024-06-29] MEDS: MORPHINE SULFATE INJ 2 MG/ml SYRG IV ONE (21:05)
[2024-06-30] VITALS (7 sets, daily range): BP systolic 130–157; BP diastolic 54–67; PULSE 72–95; RESP 18–21; TEMP 97.5–98.2; O2SAT 95–97
[2024-06-30] MEDS ORDERED: INSLANTI SC (13:19)
[2024-06-30] MEDS ORDERED: LISI-275 PO (13:19)
[2024-06-30] MEDS ORDERED: MET25T PO (13:19)
[2024-06-30] MEDS: OXYCODONE W/ ACETAMINOPHEN 5/325MG TABLET PO PRN (14:38)
[2024-07-01 01:00] VITALS: BP 131/74; PULSE 72; RESP 18; TEMP 97.5; O2SAT 95
[2024-07-01 05:00] VITALS: BP 148/56; PULSE 80; RESP 18; TEMP 98.5; O2SAT 94
[2024-07-01 08:00] VITALS: PULSE 77; RESP 20
[2024-07-01 10:47] VITALS: BP 150/62; PULSE 77; RESP 22; O2SAT 93
[2024-07-01 13:00] VITALS: BP 123/57; PULSE 65; RESP 21; TEMP 98; O2SAT 94
--- NOTE | 2024-07-01 15:54 | DVHDS2 ---
Discharge Summary Date of Admission Jun 28, 2024 at 15:41 Date of Discharge: Jul 01, 2024 Labs/Diagnostic Data: Laboratory Results Test 07/01/24 12:13 06/29/24 04:33 06/28/24 12:34 06/28/24 12:01 POC Glucose 189 mg/dl (70-106) White Blood Count 7.8 10^3/uL (4.4-10.8) Red Blood Count 3.60 10^6/uL (4.5-5.90) Hemoglobin 11.4 g/dL (13.5-17.5) Hematocrit 33.5 % (41.0-53.0) Mean Corpuscular Volume 93.0 fL (80.0-100.0) Mean Corpuscular Hemoglobin 31.7 pg (28.0-32.0) Mean Corpuscular Hemoglobin Concent 34.1 g/dL (32.0-36.0) Red Cell Distribution Width 15.2 % (11.8-14.3) Platelet Count 299 10^3/uL (140-450) Mean Platelet Volume 8.7 fL (6.9-10.8) Neutrophils (%) (Auto) 69.9 % (37.0-80.0) Lymphocytes (%) (Auto) 22.2 % (10.0-50.0) Monocytes (%) (Auto) 5.2 % (0.0-12.0) Eosinophils (%) (Auto) 1.5 % (0.0-7.0) Basophils (%) (Auto) 1.2 % (0.0-2.0) Neutrophils # (Auto) 5.4 10 ^3/uL (1.6-8.6) Lymphocytes # (Auto) 1.7 10 ^3/uL (0.4-5.4) Monocytes # (Auto) 0.4 10 ^3/uL (0-1.3) Eosinophils # (Auto) 0.1 10 ^3/uL (0-0.8) Basophils # (Auto) 0.1 10 ^3/uL (0-0.2) Nucleated Red Blood Cells 0.0 % Sodium Level 140 mmol/L (136-145) Potassium Level 4.1 mmol/L (3.5-5.1) Chloride Level 108 mmol/L (98-107) Carbon Dioxide Level 25 mmol/L (20-31) Anion Gap 7 (5-15) Blood Urea Nitrogen 18 mg/dL (9-23) Creatinine 1.18 mg/dL (0.700-1.30) Glomerular Filtration Rate Calc 69 mL/min (>90) BUN/Creatinine Ratio 15.3 (10.0-20.0) Serum Glucose 226 mg/dL (74-106) Calcium Level 8.9 mg/dL (8.7-10.4) Total Bilirubin 1.5 mg/dL (0.2-1.0) Aspartate Amino Transferase (AST) 8 U/L (13-40) Alanine Aminotransferase (ALT) 11 U/L (7-40) Alkaline Phosphatase 81 U/L (46-116) Total Protein 7.1 g/dL (5.7-8.2) Albumin 4.1 g/dL (3.2-4.8) Urine Color Yellow (Yellow) Urine Clarity Clear (Clear) Urine pH 6.0 (5.0-9.0) Urine Specific [place] 1.027 (1.001-1.035) Urine Protein Trace (Negative) Urine Ketones Trace (Negative) Urine Blood Negative /uL (Negative) Urine Nitrite Negative (Negative) Urine Bilirubin Negative (Negative) Urine Urobilinogen 3 mg/dL (Negative) Urine Leukocyte Esterase Negative /uL (Negative) Urine RBC 1 /hpf (0 - 3) Urine Microscopic WBC < 1 /HPF (0-3) Urine Squamous Epithelial Cells Few /hpf (<5) Urine Bacteria None seen /hpf (None Seen) Urine Mucus Few (None Seen) Urine Glucose 4+ mg/dL (Normal) Urine Opiates Screen Neg (NEGATIVE) Urine Fentanyl Screen Neg (NEGATIVE) Urine Barbiturates Screen Neg (NEGATIVE) Urine Phencyclidine Screen Neg (NEGATIVE) Urine Amphetamines Screen Neg (NEGATIVE) Urine Benzodiazepines Screen Neg (NEGATIVE) Urine Cocaine Screen Neg (NEGATIVE) Urine Cannabinoids Screen Neg (NEGATIVE) Hemoglobin A1c 10.0 % A1C (<5.7) Troponin I High Sensitivity 6 ng/L (</=54) Triglycerides Level 161 mg/dL (< 150) Cholesterol Level 123 mg/dL (< 200) LDL Cholesterol 70 mg/dL (< 100) HDL Cholesterol 40 mg/dL (40-59) Other Laboratory Tests 06/29/24 04:33 Brief Hx & Hospital Course: Hyamond, Chetan is a 63-year-old male with past medical history diabetes, hypertension, and hyperlipidemia, who came in for elevated blood sugar. Patient states he has not been to see a doctor in a long time and has not been taking any of his medications. He states his blood sugars have been elevated, he has been nauseated, vomiting, and having blurry vision for 2 weeks. Uncontrolled diabetes mellitus, Uncontrolled hypertension, Hyperlipidemia, intractable back pain chest pain, ruling out acute coronary syndrome 06/29/2024: pending evaluation by cardio for chest pain 06/30/2024 pt just move here from [place] and has no primary physician cannot get pain meds and insulin sent insulin and antihypertensives to local pharmacy to be delivered. obesity 07/01/2024: -- pt's pain is more controlled -- discharged to home with self care Condition at Discharge: Good Final Diagnosis/Problems List see above Discharge Disposition: Home Discharge Instruct/Medications Diet: Cardiac 2g Na,low cholest Activity: No Restrictions, As Tolerated Discharge Statement: "Patient was advised to return to the ER or call 911 if any headaches, dizziness, shortness of breath, chest pain, abdominal pain, bleeding, fevers, or worsening of medical condition. Patient was counseled about treatment plan, medications, possible side effects, patientverbalized understanding. All questions were answered to the best of my ability. This discharge took greater then 30 minutes in planning, reviewing documentation, counseling the patient, and discussing with other team members." ASSESSMENT ASSESSMENT Assessment Date of Service: Jul 01, 2024 Billing Provider: AMRY HA DO Common Visit Codes: [id number] DISCH DAY >30min MARY HA DO Jul 01, 2024 15:54
--- NOTE | 2024-07-01 16:29 | DVHPN2 ---
Reviewed: Care Plan, H&P, Labs, Medications, Previous Orders, Radiology Changes from previous H/P or p: No Changes General: Per HPI Eyes: No Pain, No Vision change, No Conjunctivae inflammation, No Eyelid inflammation, No Other, No Redness ENT: No Ear pain, No Ear discharge, No Nose pain, No Nose discharge, No Nose congestion, No Mouth pain, No Mouth swelling, No Throat pain, No Throat swelling, No Other Cardiovascular: No Chest Pain, No Palpitations, No Orthopnea, No Paroxysmal Noc. Dyspnea, No Edema, No Lt Headedness, No Other Respiratory: No Cough, No Dry, No Shortness of breath, No SOB with excertion, No Wheezing, No Hemoptysis, No Pleuritic Pain, No Sputum, No Other Gastrointestinal: Nausea, Vomiting, Abdominal Pain; No Diarrhea, No Constipation, No Melena, No Hematochezia, No Other Genitourinary: No Dysuria, No Frequency, No Incontinence, No Hematuria, No Retention, No Other Musculoskeletal: No other, No neck pain, No shoulder pain, No arm pain, No back pain, No hand pain, No leg pain, No foot pain Skin: No Rash, No Lesions, No Jaundice, No Bruising, No Other Objective Vitals Vital Signs Date Time Temp Pulse Resp B/P (MAP) Pulse Ox O2 Delivery O2 Flow Rate FiO2 07/01/24 13:00 98.0 65 21 123/57 (79) 94 98.0 07/01/24 08:00 Room Air* 0 21 Intake/Output Intake and Output 07/01/24 07:00 Intake Total 2200 ml Balance 2200 ml Intake Oral 2200 ml # Voids 16 # Bowel Movements 1 General Appearance: Alert, Oriented X3, Cooperative, No acute distress HEENT: Atraumatic Cardiovascular: Regular rate, Normal S1, Normal S2 Neuro: Normal gait, Normal speech Medications Current Medications Medications Dose Ordered Sig/Stacey Route Start Time Stop Time Status Last Admin Dose Admin Acetaminophen/ Hydrocodone Bitart 1 tab Q4HP PRN PO 06/28/24 15:45 06/30/24 05:19 1 TAB Ondansetron HCl 4 mg Q4HP PRN IV 06/28/24 15:45 Docusate Sodium 100 mg BIDPRN PRN PO 06/28/24 15:45 Acetaminophen 650 mg Q6HP PRN PO 06/28/24 15:45 2/13/25 16:16 650 MG Nitroglycerin 0.4 mg Q5MINP PRN SL 06/28/24 15:45 Morphine Sulfate 2 mg Q30M PRN IV 06/28/24 15:45 Diagnostic Test (Pha) 1 strip ACHS 06/28/24 17:00 07/01/24 11:30 1 STRIP Insulin Human Regular HS SC 06/28/24 22:00 06/30/24 22:00 4 UNITS Insulin Human Regular AC SC 06/28/24 17:00 07/01/24 12:21 3 UNITS Dextrose 50 ml UD PRN IV 06/28/24 15:45 Lisinopril 10 mg DAILY PO 06/29/24 10:00 07/01/24 09:42 10 MG Metoprolol Tartrate 25 mg BID PO 06/28/24 22:00 07/01/24 09:42 25 MG Hydralazine HCl 10 mg Q6HP PRN IV 06/28/24 19:15 Oxycodone/ Acetaminophen 2 tab Q4HP PRN PO 06/30/24 13:15 07/01/24 09:44 2 TAB Laboratory Results Laboratory Tests 06/29/24 04:33 Urinalysis Test 06/28/24 12:34 Urine Color Yellow (Yellow) Urine Clarity Clear (Clear) Urine pH 6.0 (5.0-9.0) Urine Specific [place] 1.027 (1.001-1.035) Urine Protein Trace (Negative) H Urine Ketones Trace (Negative) Urine Blood Negative /uL (Negative) Urine Nitrite Negative (Negative) Urine Bilirubin Negative (Negative) Urine Urobilinogen 3 mg/dL (Negative) H Urine Leukocyte Esterase Negative /uL (Negative) Urine RBC 1 /hpf (0 - 3) Urine Microscopic WBC < 1 /HPF (0-3) Urine Squamous Epithelial Cells Few /hpf (<5) Urine Bacteria None seen /hpf (None Seen) Urine Mucus Few (None Seen) Urine Glucose 4+ mg/dL (Normal) H Labs and/or images reviewed: Labs reviewed by me, Image(s) reviewed by me Assessment/Plan Assessment/Plan Chetan Salmon is a 63-year-old male with past medical history diabetes, hypertension, and hyperlipidemia, who came in for elevated blood sugar. Patient states he has not been to see a doctor in a long time and has not been taking any of his medications. He states his blood sugars have been elevated, he has been nauseated, vomiting, and having blurry vision for 2 weeks. Uncontrolled diabetes mellitus, Uncontrolled hypertension, Hyperlipidemia, intractable back pain chest pain, ruling out acute coronary syndrome 06/30/2024 pt just move here from [place] and has no primary physician cannot get pain meds and insulin sent insulin and antihypertensives to local pharmacy to be delivered. obesity Plan discussed with: Patient My Orders Orders - MARY HA DO Procedure Category Date Status Time Discharge DISCHARGE 07/01/24 Transmitted 15:53 Date of Service: Jun 30, 2024 Billing Provider: MARY HA DO Common Visit Codes: [id number] INP/OBS CARE(HIGH) MARY HA DO Jul 01, 2024 16:29
[2024-07-01 17:00] VITALS: BP 127/41; PULSE 75; RESP 20; TEMP 97.9; O2SAT 96
== END 2024-07-01 18:15 | disposition home or self-care (01) | DRG 639 ==
LOC: ER 11:46 → OVERFLOW 15:41 → TELE-EAST 06-29 15:52
PROVIDERS: ADMIT Nurse Practitioner Family; ATTEND Internal Medicine
DX: E11.65 Type 2 diabetes mellitus with hyperglycemia (principal); I16.0 Hypertensive urgency; I10 Essential (primary) hypertension; I34.0 Nonrheumatic mitral (valve) insufficiency; H53.8 Other visual disturbances; E78.5 Hyperlipidemia, unspecified; F11.10 Opioid abuse, uncomplicated; E66.9 Obesity, unspecified; M54.9 Dorsalgia, unspecified; Z87.891 Personal history of nicotine dependence; Z88.1 Allergy status to other antibiotic agents; Z91.199 Patient's noncompliance with other medical treatment and regimen due to unspecified reason; Z86.73 Personal history of transient ischemic attack (TIA), and cerebral infarction without residual deficits; Z91.148 Patient's other noncompliance with medication regimen for other reason; Z68.24 Body mass index [BMI] 24.0-24.9, adult
CPT/HCPCS: 36415; 71045; 80048; 80053; 80061; 80307; 81001; 82962; 83036; 84484; 85025; 93005; 93306; G0378; J1815